=== PATIENT | female | born 1945 | race Caucasian/White ===

== ENCOUNTER 2017-03-16 13:08 | Emergency (ER) | payer MEDICARE ==
[~2017-03-16] VITALS: Ht 162.6 cm; Wt 67.1 kg
[~2017-03-16 13:08] MED LIST: AEROCHAMBER1 DEV IH; ALBUTEROL2 PUFFS/17 IN; ASPIRIN 81MG TA81 MG PO; ASPIRIN CHILDRE81 M1 PO; HYDROCHLOROTH12.5 M1 PO; LISINOPRIL 10MG10 MG PO; METOPROLOL50 MG PO; NEXIUM40 MG PO; SIMVASTATIN10 MG PO; SIMVASTATIN20 MG PO; SINGULAIR 10 MG10 MG PO; SYMBICORT 10.10.2 M1 IH; VICODIN 5/500 T1 TAB PO
--- NOTE | 2017-03-16 13:28 | Urgent Treatment Center Report ---
History of Present Issue Date/Time Seen by Provider 03/16/17 1318 Visit Reason Pt arrived:Walked Presenting Problem:PT ADVISES THAT SHE FELL AT RELIGIOUS AROUND NOON ON THE CONCRETE. PT ADVISES THAT SHE TURNED HER LEFT ANKLE DURNING THE FALL AND HEARD A "POP" SOUND Location if Accident:Psychiatric Onset of symptoms date/time:/ or onset unknown for:MEDICAL HX UNKNOWN Have you (or family members/close friends) recently traveled outside the [place]? N If Yes, where/when: Have you had exposure to infectious disease within the past month? TB? Other? Specify: c/o left foot and ankle pain. Denies pain medication. "just here to see if I broke anything". reports was walking down steps after [employer] around 1200 and when she stepped off the last step, heard left ankle "pop" and fell to the concrete. Denies pain elsewhere. reports small abrasion to right knee but otherwise, "I am ok". Denies hitting head. No back, hip, knee or leg pain. Hasn' t taken or tried anything for pain. Did clean right knee w/ soap and water and place band-aid over it. "It is nothing, very small. It will be ok." Source patient Exam Limitations no limitations ALLERGIES Coded Allergies: No Known Allergies (03/16/17) Home Medications Active Scripts Albuterol (Albuterol Inhaler 17GM) 2 PUFF IN Q4HP #1 INH Prov: 12/14/10 Reported Medications Montelukast Sodium (Singulair 10MG) 10 MG PO QHS Aspirin 2 TABLET PO DAILY Simvastatin 20 MG PO QHS Hydrochlorothiazide (Hydrochlorothiazide 12.5MG) 12.5 MG PO TWICE A WEEK BUDESONIDE/FORMOTEROL FUMARATE (Symbicort 160-4.5 Mcg Inhaler) 1 AER IH BID History Medical History General CAD? No Angina: Yes AK: No Hypertension? Yes Hyperlipidemia? Yes CHF? No DVT? No PE? No COPD? No Asthma? Yes Anemia? No GERD? No Gastric ulcers? No GI Bleed? No Hernia? No Thyroid Problems? No Hypothyroidism? No CVA? No Seizures? No Diabetes? No Renal Insuffiency? No UTI? No Stones? No BPH? No GB Disease: Yes Nephritic Syndrome? No Asplenia? No Hepatitis? No Arthritis? No Migraines? No Cataracts? No Glaucoma? No MRSA? No HIV? No TB? No Depression? No Cancer? No More? No Immunization HX DT/Tetanus 1-4 YRS Flu [id number] Pneumonia NEVER Surgical Hx Previous Surgery?Y Hysterect TUBAL LIGATION GALLBALDDER REMOVED APPENDECTOMY Family History Family HX Diabetes No CAD Yes Hypertension Yes Hyperlipidemia No Cancer Yes TB No Social History Smoking Hx Smoker: Never Smoker Tobacco: No Packs/day N/A Alcohol Alcohol: No Review of Systems All Other Systems Reviewed and Negative Constitutional see HPI Musculoskeletal see HPI, joint swelling ("somewhat" left ankle) Skin see HPI, denies change in color Psychiatric/Neurological denies numbness, denies tingling Physical Exam Vital Signs Vital Signs Date Time Temp Pulse Resp B/P Pulse O2 O2 Flow FiO2 Ox Delivery Rate 03/16 1317 97.9 71 16 112/75 97 General Appearance normal appearance, no apparent distress Respiratory Status No: respiratory distress. Cardiovascular no peripheral edema Peripheral Pulses Pulses normal Yes (PT/DP) Back gait abnormality (slight limp, favors left) Extremities pt's normal ROM otf hips and knees, right ankle and all toes, limited ROM left ankle, mild swelling left lateral malleous, mild tenderness left lateral malleous as well and both lateral and medial midfoot areas. No pain anterior midfoot, any metatarsals/phalanges or heel Neurologic alert, no motor/sensory deficits, oriented x 3 Skin right anterior knee, covered w/ 2cm round band-aid, declines offer to examine. "oh honey it will be ok. It is nothing." Medical Decision Making LABS/Meds/Orders Pt receiving controlled substance in ED? No Results/Orders Orders Procedure Date/time Status STABILIZE JOINT 03/16 1410 Active FOOT-LT-3 VIEWS 03/16 1328 Active ANKLE-LT-3 VIEWS 03/16 1319 Active XRAY/CT/US XRAY/CT/US XRAY ankle (left), foot (left) XR interpretation by reviewed by me (w/ Dr. Naik, ER ) Xray Results distal fibula fracture Progress [facility] Progress Notes Date 03/16/17 Comment pt denies hx of renal insuff/disease, stomach ulcers, bleeds. Denies being told to avoid ibuprofen, motrin aleve and reports occasionally takes motrin for "here and there pain". Procedures Orthopedic/Inj/Splint Ortho Proc/Injections/Splints Risks/benefits discussed with pt/guardian? Yes Hand-Made Type orthoglass Splint posterior short leg (left leg) Pre-Proc Neuro Vasc Exam normal Post-Proc Neuro Vasc Exam normal Departure Departure Time of Disposition 1449 Disposition DC Home or Self Care(routine) Clinical Impression Primary Impression: Closed left fibular fracture Qualifiers: Encounter type: initial encounter Fibula location: distal Fracture morphology: unspecified fracture morphology Qualified Code: S82.832A - Other fracture of upper and lower end of left fibula, initial encounter for closed fracture Condition STABLE Referrals ARACELIS FAULKNER DPM Call office Friday. Report fall this . Seen in [facility]. xray. Diagnoses with distal fibula fracture. orthoglass splint on. Told to call Friday for follow up appointment. Patient Instructions DI for Ankle Fracture, How To Perform RICE (Rest, Ice, Compress, Elevate), How to Take Care of Your Splint, How to Use Crutches Additional Instructions * nonweight bearing. Reports has crutches at home. * Rest * ice 15-20 mins 3-4 times a day * orthoglass splint for support and swelling until follow up with ortho. Monitor toes for movement, sensation, swelling, color as discussed. Follow up if toes cold, numb, can't move. * Elevate as discussed as much as possible to help reduce swelling and therefore , pain * Ibuprofen every 6 hours as needed for pain and inflammation. If you need something more, you can take tylenol every 4 hours as needed as long as your primary care provider has told you it is ok to take both. Discharge Counseling Counseled pt/family regarding diagnosis, test results, medications/RX, home care, follow up needs at 1448
--- NOTE | 2017-03-16 13:28 | Urgent Treatment Center Report ---
History of Present Issue Date/Time Seen by Provider 03/16/17 1318 Visit Reason Pt arrived:Walked Presenting Problem:PT ADVISES THAT SHE FELL AT JAIN AROUND NOON ON THE [place]. PT ADVISES THAT SHE TURNED HER LEFT ANKLE DURNING THE FALL AND HEARD A "POP" SOUND Location if Accident:[facility] Onset of symptoms date/time:/ or onset unknown for:MEDICAL HX UNKNOWN Have you (or family members/close friends) recently traveled outside the [place]? N If Yes, where/when: Have you had exposure to infectious disease within the past month? TB? Other? Specify: c/o left foot and ankle pain. Denies pain medication. "just here to see if I broke anything". reports was walking down steps after [employer] around 1200 and when she stepped off the last step, heard left ankle "pop" and fell to the concrete. Denies pain elsewhere. reports small abrasion to right knee but otherwise, "I am ok". Denies hitting head. No back, hip, knee or leg pain. Hasn' t taken or tried anything for pain. Did clean right knee w/ soap and water and place band-aid over it. "It is nothing, very small. It will be ok." Source patient Exam Limitations no limitations ALLERGIES Coded Allergies: No Known Allergies (03/16/17) Home Medications Active Scripts Albuterol (Albuterol Inhaler 17GM) 2 PUFF IN Q4HP #1 INH Prov: 12/14/10 Reported Medications Montelukast Sodium (Singulair 10MG) 10 MG PO QHS Aspirin 2 TABLET PO DAILY Simvastatin 20 MG PO QHS Hydrochlorothiazide (Hydrochlorothiazide 12.5MG) 12.5 MG PO TWICE A WEEK BUDESONIDE/FORMOTEROL FUMARATE (Symbicort 160-4.5 Mcg Inhaler) 1 AER IH BID History Medical History General CAD? No Angina: Yes DC: No Hypertension? Yes Hyperlipidemia? Yes CHF? No DVT? No PE? No COPD? No Asthma? Yes Anemia? No GERD? No Gastric ulcers? No GI Bleed? No Hernia? No Thyroid Problems? No Hypothyroidism? No CVA? No Seizures? No Diabetes? No Renal Insuffiency? No UTI? No Stones? No BPH? No GB Disease: Yes Nephritic Syndrome? No Asplenia? No Hepatitis? No Arthritis? No Migraines? No Cataracts? No Glaucoma? No MRSA? No HIV? No TB? No Depression? No Cancer? No More? No Immunization HX DT/Tetanus 1-4 YRS Flu [id number] Pneumonia NEVER Surgical Hx Previous Surgery?Y Hysterect TUBAL LIGATION GALLBALDDER REMOVED APPENDECTOMY Family History Family HX Diabetes No CAD Yes Hypertension Yes Hyperlipidemia No Cancer Yes TB No Social History Smoking Hx Smoker: Never Smoker Tobacco: No Packs/day N/A Alcohol Alcohol: No Review of Systems All Other Systems Reviewed and Negative Constitutional see HPI Musculoskeletal see HPI, joint swelling ("somewhat" left ankle) Skin see HPI, denies change in color Psychiatric/Neurological denies numbness, denies tingling Physical Exam Vital Signs Vital Signs Date Time Temp Pulse Resp B/P Pulse O2 O2 Flow FiO2 Ox Delivery Rate 03/16 1317 97.9 71 16 112/75 97 General Appearance normal appearance, no apparent distress Respiratory Status No: respiratory distress. Cardiovascular no peripheral edema Peripheral Pulses Pulses normal Yes (PT/DP) Back gait abnormality (slight limp, favors left) Extremities pt's normal ROM otf hips and knees, right ankle and all toes, limited ROM left ankle, mild swelling left lateral malleous, mild tenderness left lateral malleous as well and both lateral and medial midfoot areas. No pain anterior midfoot, any metatarsals/phalanges or heel Neurologic alert, no motor/sensory deficits, oriented x 3 Skin right anterior knee, covered w/ 2cm round band-aid, declines offer to examine. "oh honey it will be ok. It is nothing." Medical Decision Making LABS/Meds/Orders Pt receiving controlled substance in ED? No Results/Orders Orders Procedure Date/time Status STABILIZE JOINT 03/16 1410 Active FOOT-LT-3 VIEWS 03/16 1328 Active ANKLE-LT-3 VIEWS 03/16 1319 Active XRAY/CT/US XRAY/CT/US XRAY ankle (left), foot (left) XR interpretation by reviewed by me (w/ Dr. Naik, ER ) Xray Results distal fibula fracture Progress [facility] Progress Notes Date 03/16/17 Comment pt denies hx of renal insuff/disease, stomach ulcers, bleeds. Denies being told to avoid ibuprofen, motrin aleve and reports occasionally takes motrin for "here and there pain". Procedures Orthopedic/Inj/Splint Ortho Proc/Injections/Splints Risks/benefits discussed with pt/guardian? Yes Hand-Made Type orthoglass Splint posterior short leg (left leg) Pre-Proc Neuro Vasc Exam normal Post-Proc Neuro Vasc Exam normal Departure Departure Time of Disposition 1449 Disposition DC Home or Self Care(routine) Clinical Impression Primary Impression: Closed left fibular fracture Qualifiers: Encounter type: initial encounter Fibula location: distal Fracture morphology: unspecified fracture morphology Qualified Code: S82.832A - Other fracture of upper and lower end of left fibula, initial encounter for closed fracture Condition STABLE Referrals ARACELIS FAULKNER DPM Call office Friday. Report fall this . Seen in [facility]. xray. Diagnoses with distal fibula fracture. orthoglass splint on. Told to call Friday for follow up appointment. Patient Instructions DI for Ankle Fracture, How To Perform RICE (Rest, Ice, Compress, Elevate), How to Take Care of Your Splint, How to Use Crutches Additional Instructions * nonweight bearing. Reports has crutches at home. * Rest * ice 15-20 mins 3-4 times a day * orthoglass splint for support and swelling until follow up with ortho. Monitor toes for movement, sensation, swelling, color as discussed. Follow up if toes cold, numb, can't move. * Elevate as discussed as much as possible to help reduce swelling and therefore , pain * Ibuprofen every 6 hours as needed for pain and inflammation. If you need something more, you can take tylenol every 4 hours as needed as long as your primary care provider has told you it is ok to take both. Discharge Counseling Counseled pt/family regarding diagnosis, test results, medications/RX, home care, follow up needs at 1444
[2017-03-16 14:51] VITALS: BP 112/75
--- NOTE | 2017-03-16 17:12 | RADIOLOGY REPORT PS360 ---
FOOT-LT-3 VIEWS HISTORY: pain foot/ankle walking down steps, twisted ankle, fell, pain foot/ankle ORDERING PHYSICIAN: NURA JOLLY APRN PATIENT AGE: 71 years COMPARISON: None FINDINGS: No fracture or dislocation. No lytic or blastic change. There is normal mineralization.. The joint spaces are well-preserved. No significant degenerative/arthritic changes. No erosive changes evident. IMPRESSION: Negative left foot, no acute finding
--- NOTE | 2017-03-16 17:13 | RADIOLOGY REPORT PS360 ---
ANKLE-LT-3 VIEWS HISTORY: FELL AT [employer]; HEARD A POPPING SOUND ORDERING PHYSICIAN: NURA JOLLY APRN PATIENT AGE: 71 years COMPARISON: None FINDINGS: There is a small area of cortical irregularity involving the distal aspect of the fibula at the lateral malleolus region which could be due to small bulge and injury. There is some soft tissue swelling at this region as well. This is seen only on one view. IMPRESSION: Possible avulsion fracture at the lateral malleolus nondisplaced with soft tissue swelling
--- NOTE | 2017-03-16 17:13 | RADIOLOGY REPORT PS360 ---
ANKLE-LT-3 VIEWS HISTORY: FELL AT [employer]; HEARD A POPPING SOUND ORDERING PHYSICIAN: NURA JOLLY APRN PATIENT AGE: 71 years COMPARISON: None FINDINGS: There is a small area of cortical irregularity involving the distal aspect of the fibula at the lateral malleolus region which could be due to small bulge and injury. There is some soft tissue swelling at this region as well. This is seen only on one view. IMPRESSION: Possible avulsion fracture at the lateral malleolus nondisplaced with soft tissue swelling
== END 2017-03-16 14:52 | disposition home or self-care (01) ==
LOC: UTC 13:08
DX: S82.832A Other fracture of upper and lower end of left fibula, initial encounter for closed fracture (principal)

== ENCOUNTER → 2017-03-22 | Outpatient (CLI) | payer MEDICARE ==
[2017-03-22 13:34] LABS: LYMPH # 2.2 K/mm3 (0.7-4.5); LYMPH % 30.7 % (10-50.0)
[2017-03-22 13:47] LABS: HEMOGLOBIN 13.2 g/dL (12.2-16.2)
[2017-03-22 14:49] LABS: BUN 24 mg/dL (7-18)
[2017-03-22 15:02] LABS: GFR (ESTIMATED) 71 ML/MIN (59-)
== END ==
LOC: LAB 13:06
PROVIDERS: Internal Medicine Adolescent Medicine
DX: I63.9 Cerebral infarction, unspecified (principal); E78.5 Hyperlipidemia, unspecified

== ENCOUNTER → 2017-03-24 | Outpatient (CLI) | payer MEDICARE ==
--- NOTE | 2017-03-27 05:32 | RADIOLOGY REPORT PS360 ---
MRI-BRAIN W/O HISTORY: ISCHEMIC STROKE words jumbled can't get words out. Left side face to been. Headache. Symptoms lasted 1-3 days Patient Age: 71 years: FemaleOrdering Physician: Ilan Douglas MD TECHNIQUE: Noncontrast Multiplanar FLAIR, T1, T2 weighted images along with axial diffusion/ADC imaging performed on 1.5 T. Siemens, MRI. COMPARISON :CT head without contrast April 2016 FINDINGS Diffusion images reveal no recent ischemia, nor acute infarct No territorial infarct evident. Fairly extensive Chronic small vessel deep white matter high signal abnormalities throughout the periventricular and subcortical deep white matter. These deep white matter changes particularly evident at the anterior basal ganglia, overlying head of caudate and then extending superior from this region through the dietz radiata into the centrum semiovale white matter.. These features compatible with fairly pronounced extensive chronic Small vessel microangiopathic ischemic gliotic changes of aging brain. There is diffuse cerebral atrophy, question subtle progression of such even since April 2016. Mild dilatation of the of the lateral ventricles reflects this central and cortical atrophy. No extra-axial nor subdural collections The cranial cervical junction is satisfactory. Posterior fossa unremarkable. CP angles clear. Cranial nerve VII and VIII can be followed into respective IACs. Mastoid air cells unremarkable. . Orbits unremarkable. Paranasal sinuses are well-developed and clear.Minor observations here. Only scant mucosal thickening at the posterior right sphenoid sinus and borderline mucosal thickening ethmoid air cells. Deviation nasal septum convexity most evident to the right at mid septum IMPRESSION: -------- 1. No acute infarct nor recent infarct or ischemia. 2. Generous, fairly extensive chronic small vessel deep white matter ischemic gliotic changes throughout periventricular & subcortical deep white matter cerebral hemispheres bilaterally. Deep white matter changes particularly notable at the anterior basal ganglia extending superior from this region 3. Diffuse cerebral atrophy
== END ==
LOC: RAD 10:41
DX: G45.8 Other transient cerebral ischemic attacks and related syndromes (principal)

== ENCOUNTER → 2017-04-08 | Outpatient (CLI) | payer MEDICARE ==
--- NOTE | 2017-04-11 10:00 | RADIOLOGY REPORT PS360 ---
DIG MAMM-SCREEN WHIT W/CAD CAD Screening ORDERING PHYSICIAN : Ilan Douglas MD PATIENT AGE: 71 years GENDER: Female COMPARISON: Previous mammograms: July 2014, August 2015, May 2013, April 2012 INDICATION: Routine screening 71-year-old. No hormones. No new complaints.. Family history. Grandmother breast cancer. TECHNIQUE: Standard CC and MLO images were obtained. R2 CAD reviewed. FINDINGS: No significant new findings. Moderate breast density bilaterally. No dominant mass nor suspicious calcifications no architectural distortion either breast RIGHT BREAST: Again note the generous duct at the right retroareolar region similar to previous studies. No change. LEFT BREAST:. Stable left breast with No new areas of concern. The left breast also has slightly generous duct at the lateral retroareolar but this appears a stable since multiple prior studies Appears to be less compression on today's MLO view but cc view with stable appearance. IMPRESSION: --------- Stable bilateral mammogram, with no significant new findings. Bilateral follow-up in one year recommended. BI-RADS CATEGORY: 2_Benign RECOMMENDED FOLLOWUP: 12M 12 MONTH FOLLOW-UP (A letter has been sent to the patient regarding results of the study.)
== END ==
LOC: RAD 16:28
DX: Z12.31 Encounter for screening mammogram for malignant neoplasm of breast (principal)
CPT/HCPCS: G0202